=== PATIENT | female | born 1975 | race Caucasian/White ===

== ENCOUNTER 2016-11-03 12:07 | Outpatient (CLI) | payer OTHER ==
--- NOTE | 2016-11-03 16:44 | DIAGNOSTIC IMAGING REPORT ---
PROCEDURE: MR PELVIS W/WO CONTRAST INDICATION: Left hip decubitus ulcer TECHNIQUE: Axial T1, STIR, T2; coronal and sagittal T1 and STIR sequences. Following 14 ml of Gadolinium IV, axial, coronal and sagittal T1 fat sat sequences obtained. COMPARISON: Pelvis MRI 11/06/2014 FINDINGS: A 3.5 cm deep soft tissue ulceration old overlying the left ischial tuberosity with progression of abnormal increased T2 signal abnormal area measures approximate 2.1 x 1.9 x 1.7 cm (previously 1.7 x 1.4 x 0.5 cm). There is mild adjacent myositis of the gluteus miguel ángel and inferior gemellus muscles. Severe atrophy of the pelvic muscles. Stable 13 mm sharply circumscribed lesion in the medial aspect of the right femoral head consistent with a hysterectomy. Flores catheter in place. IMPRESSION: 1. Left ischial decubitus ulcer with progression of osteomyelitis
[2016-11-17] MEDS ORDERED: DIPHENHYDRAMINE25 M1 PO (10:29)
[2016-11-17] MEDS ORDERED: LORATADINE10 MG PO (10:29)
[2016-11-17] MEDS ORDERED: ZANTAC 150 MAX150 MG PO (10:31)
[2016-11-17] MEDS ORDERED: IRON325 MG PO (10:32)
[2016-11-17] MEDS ORDERED: BISACODYL10 MG PR (10:36)
[2016-11-17] MEDS ORDERED: NORCO1 TAB PO (10:38)
[2016-11-17] MEDS ORDERED: PAROXETINE HCL30 MG PO (11:14)
[2016-11-17] MEDS ORDERED: BACTROBAN21 TOP (11:14)
[2016-11-17] MEDS ORDERED: NORTRIPTYLINE H25 MG PO (11:15)
[2016-11-17] MEDS ORDERED: VITAMIN D-31000 UNIT PO (11:15)
[2016-11-17] MEDS ORDERED: BACTRIM DS1 TAB PO (11:16)
== END 2016-11-03 23:00 ==
LOC: MRI SRH 12:07
DX: L89.229 Pressure ulcer of left hip, unspecified stage (principal); M86.8X8 Other osteomyelitis, other site
CPT/HCPCS: 90074; 91631; 92560

== ENCOUNTER 2016-11-18 09:36 | Day surgery (SDC) | payer OTHER ==
[~2016-11-18 09:36] MED LIST: BACTRIM DS1 TAB PO; BACTROBAN21 TOP; BISACODYL10 MG PR; DIPHENHYDRAMINE25 M1 PO; IRON325 MG PO; LORATADINE10 MG PO; NORCO1 TAB PO; NORTRIPTYLINE H25 MG PO; PAROXETINE HCL30 MG PO; VITAMIN D-31000 UNIT PO; ZANTAC 150 MAX150 MG PO
--- NOTE | 2016-11-18 16:26 | Provider's Discharge Care Plan ---
Problem, Goal, Plan Problem List 1. Pressure ulcer
--- NOTE | 2016-11-18 16:26 | Provider's Discharge Care Plan ---
Problem, Goal, Plan Problem List 1. Pressure ulcer
[2016-11-18 16:49] VITALS: BP 106/68
[2016-11-18 17:05] VITALS: BP 103/63
[2016-11-18 17:24] VITALS: BP 93/60
[2016-11-18 17:36] VITALS: BP 91/63
--- NOTE | 2016-11-18 19:48 | OPERATIVE REPORT ---
DATE OF SURGERY: 11/18/2016 SURGEON: Louis Castellon MD PREOPERATIVE DIAGNOSIS: 1. Left ischial tuberosity pressure ulcer POSTOPERATIVE DIAGNOSIS: 1. Left ischial tuberosity pressure ulcer PROCEDURE PERFORMED: 1. Excision with advancement flap closure of left ischial tuberosity pressure ulcer (4 x 10 cm) with debridement of bone ANESTHESIA: Local with monitored anesthesia care. INDICATIONS: The patient is a 41-year-old quadriplegic with a persistent wound sinus down to the ischial tuberosity, being treated with wound VAC. She is taken at this time for definitive excision and closure. SURGICAL TECHNIQUE: The patient was taken to the operating room after being given an intravenous dose of daptomycin and positioned in the right lateral decubitus position on a beanbag. A sterile prep and drape was done, and a transversely-oriented curve flap was designed to incorporate the external sinus tract. This was anesthetized with 0.5 % Marcaine with epinephrine. The skin was incised, and the entire sinus tract was excised, giving an incision about 10 cm long and maximally 4 cm in width. This was carried down onto the ischial tuberosity where there was some exposed bone. A single action rongeur was used to remove any loose or soft bone that might be involved in osteomyelitis down to hard, good bleeding bone. Pressure was held and local anesthetic placed until hemostasis was satisfactory. Local undermining was done, advancing both the adjacent fascia and the full-thickness skin and subcutaneous tissue. Once hemostasis was complete, the wound was closed with interrupted 3-0 Vicryl for several deep-layer sutures as well as for deep dermal sutures. Skin was closed with vertical mattress 4-0 nylon sutures. Note that a 10 mm flat silicone drain was placed in the depth of the wound and brought out through a lateral stab wound, where it was secured to the skin with a 3-0 nylon suture and placed to bulb suction. Dressings were placed. The patient left in stable condition to continue her observation status.
[2016-11-18 20:50] VITALS: BP 102/65
[2016-11-18 23:00] VITALS: BP 103/63
[2016-11-19 02:32] VITALS: BP 191/98
[2016-11-19 07:50] VITALS: BP 129/94
[2016-11-19 10:45] VITALS: BP 93/56
== END 2016-11-19 16:10 | disposition home or self-care (01) ==
LOC: OR SRH 09:36 → SCU SRH 09:40 → ACUTE3 SRH 16:42
PROVIDERS: Surgery
PROC: 0KXG0ZZ Transfer Left Trunk Muscle, Open Approach (ICD-10-PCS; principal; 2016-11-18 12:45)
PROC: 0QB30ZZ Excision of Left Pelvic Bone, Open Approach (ICD-10-PCS; principal; 2016-11-18 12:45)
DX: L89.324 Pressure ulcer of left buttock, stage 4 (principal)